=== PATIENT | male | born 1960 | race Caucasian/White ===

== ENCOUNTER 2018-05-11 08:28 | Day surgery (SDC) | payer OTHER ==
[2018-05-06 14:42] VITALS: BMI 25.2
[~2018-05-11 08:28] MED LIST: LACTATED RINGERS 1,000 ML IV SCH
[2018-05-11 09:04] VITALS: TEMP 97.8
[2018-05-11] MEDS ORDERED: LIDOCAINE 1% 20 ML VIAL (10MG/ML) FOR IV START INTRADERMA ONE (09:05)
[2018-05-11] MEDS ORDERED: LIDOCAINE 1% INJ 10MG/ML (20 ML MDV) ONE (10:05)
[2018-05-11] MEDS ORDERED: PROPOFOL 10 MG/ML 20 ML VIAL IV ONE (10:05)
[2018-05-11 10:30] VITALS: RESP 18
[2018-05-11 10:48] VITALS: BP 134/78; PULSE 68
--- NOTE | 2018-05-11 15:27 | P.OP ---
Date of Procedure: 05/11/18 Preoperative Diagnosis: Screening colonoscopy Postoperative Diagnosis: Poor prep hemorrhoids Procedure(s) Performed: Colonoscopy Anesthesia: MAC Surgeon: Kentrell Gold Condition: stable Disposition: same day Description of Procedure: Patient is brought to the Endo suite placed placed in the left lateral decubitus position underwent sedation per department of anesthesia rectal exam was performed and hemorrhoids were noted. The scope was then passed from the rectum to the cecum with ease there was very poor prep noted. Only one third of the colonic roldan were able to be completely visualizes scope was slowly withdrawn. No large masses were seen it's difficult to tell whether there is any small polyps secondary to the poor prep. Patient later admitted after the procedure that he did not complete the prep. He did not want to redo prep and I discussed with him the risks of missing a smaller polyp. He stated he understood and may follow-up for colonoscopy some later date. Despite my recommendation to reprepping complete colonoscopy the patient did not want to do this at this time. He will follow-up in my clinic
== END 2018-05-11 11:00 | disposition home or self-care (01) ==
LOC: ORWHC2ENDO 08:28
PROVIDERS: ATTEND Student in an Organized Health Care Education/Training Program
DX: K64.9 Unspecified hemorrhoids (principal); K21.9 Gastro-esophageal reflux disease without esophagitis; Z80.0 Family history of malignant neoplasm of digestive organs; Z72.0 Tobacco use; Z79.1 Long term (current) use of non-steroidal anti-inflammatories (NSAID); Z79.899 Other long term (current) drug therapy
CPT/HCPCS: 45378; J2001; J2704

== ENCOUNTER → 2019-01-10 | Outpatient (CLI) | payer OTHER ==
--- NOTE | 2019-01-10 16:53 | MR ---
EXAMINATION TYPE: MR cervical spine wo/w con DATE OF EXAM: 01/10/2019 COMPARISON: None HISTORY: Neck pain, radiculopathy TECHNIQUE: Multiplanar, multisequence images of the cervical spine were acquired utilizing 7 mL intravenous Gada vist gadolinium contrast. Diffusion weighted imaging was performed. C2-C3: Facet arthropathy and uncovertebral joint hypertrophy contribute to cause left-sided foraminal encroachment. No evident disc herniation. No central stenosis. C3-C4: Hypertrophic changes at the facet on the left, uncovertebral vertebral joint hypertrophy resul ts in significant left-sided foraminal encroachment. No central stenosis, minimal posterior broad-bas ed disc bulge causes only slight anterior mass effect on the thecal sac. C4-C5: Posterior extension of endplate disc complex causes mild anterior mass effect on the thecal sa c. There is mild bilateral foraminal encroachment. C5-C6: Right-sided foraminal encroachment is significant due to uncovertebral joint hypertrophy and f acet arthropathy. Posterior extension endplate disc complex causes mild anterior mass effect on the t hecal sac. No significant central stenosis. C6-C7: Small central posterior disc bulge causes slight anterior mass effect on the thecal sac. No ce ntral stenosis or disc herniation. C7-T1: No evidence for degenerative disc disease. No disc bulge/herniation or protrusion. No Canal stenosis. Foramina are patent bilaterally. Cervical segments are intact. There is minimal anterolisthesis grade 1 C3-4, there is endplate disco genic marrow signal change present especially at C5-6. Loss of disc height signal present at the int ervertebral levels especially at C5-6. There is multilevel spondylosis. Cervical vertebral bodies jaime w preserved height. Cervical spinal cord is of normal signal. Craniovertebral junction relationships are within normal limits. Post contrast images show marked enhancement about the facet on the left at C3-4 with some enhancement extending into the spinal canal along the left lateral margin of the ce rvical cord. IMPRESSION: Significant multilevel facet arthropathy with enhancement as described at the facet at C3-4 and the l eft likely due to arthropathy, synovitis. Degenerative disc disease.
== END | disposition home or self-care (01) ==
LOC: RADMRIMAIN 15:36
PROVIDERS: ATTEND Family Medicine
DX: M50.10 Cervical disc disorder with radiculopathy, unspecified cervical region (principal); M46.92 Unspecified inflammatory spondylopathy, cervical region
CPT/HCPCS: 72156; A9585